=== PATIENT | female | born 1950 | race Caucasian/White ===

== ENCOUNTER → 2018-08-25 | Day surgery (SDC) | payer BC ==
[~2018-08-25] MED LIST: ALLEGRA ALLERGY60 MG PO; ASPIR 8181 MG PO; CARTIA XT240 MG PO; DAILY VITAMIN1 EAC4 PO; FENTANYL CITRATE/PF 100MCG/2 ML INJ ONE; GABAPENTIN100 MG PO; GLUCOSAMINE 1,1 EACH PO; JARDIANCE PO; LISINOPRIL10 MG PO; Lidocaine Patch TOP; METFORMIN HCL500 MG PO; MIDAZOLAM HCL 2 MG/2 ML VIAL ONE; NOVOLOG MI100 UNIT/1 SC; OR PHACO EYE KIT ONE; PRAVASTATIN SOD80 MG PO; PREOP PHACO EYE KIT ONE; ULTRAM50 MG PO; VESICARE5 MG PO; VICTOZA 2-0.6 MG/0.1 SC
--- OUTSIDE RECORDS SUMMARY | 2018-08-25 09:11 | XMS REPORT | Clinical Summary ---
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 Name Role Phone Edward Jacobsen MD PCP Allergies Not on File Medications Not on file Active Problems Not on file Encounters Care Team Description Date Type Specialty Kim Gil MD Non-toxic goiter (Primary Dx) 08/19/2018 Transcribe Access Orders Kim Gil MD Non-toxic goiter; Thyroid nodule 08/07/2018 Hospital Radiology Encounter Kim Gil MD Type II diabetes mellitus with hyperosmolarity, uncontrolled (HCC) (Primary Dx); Non-toxic goiter 07/30/2018 Transcribe Access Orders Kim Gil MD Type II diabetes mellitus with hyperosmolarity, uncontrolled (HCC); Non-toxic goiter 07/20/2018 Hospital Radiology Encounter Kim Gil MD Type II diabetes mellitus with hyperosmolarity, uncontrolled (HCC) (Primary Dx); Non-toxic goiter 07/09/2018 Transcribe Access Orders after 08/24/2017 Social History Date Tobacco Use Types Packs/Day Years Used Never Assessed Sex Assigned at Date Recorded Not on file Industry Job Start Date Occupation Not on file Not on file Not on file Travel End Travel History Travel Start No recent travel history available. Last Filed Vital Signs Not on file Plan of Treatment Health Maintenance Due Date Last Done Comments DIABETIC RETINAL EYE EXAM 1950 DIABETIC FOOT EXAM 01/06/1960 URINE MICROALBUMIN 01/06/1960 BREAST CANCER SCREENING 01/06/2000 COLON CANCER SCREENING 01/06/2000 SHINGRIX VACCINE (1 of 2) 01/06/2000 ZOSTER VACCINE 2010 INFLUENZA VACCINE 04/22/2018 06/23/2017, 06/14/2016, 07/07/2015, Additional history exists PNEUMOCOCCAL Completed 01/18/2014, 04/10/2009 POLYSACCHARIDE VACCINE AGE 65 AND OVER PNEUMOCOCCAL-13 Completed 07/07/2015 Procedures Comments Procedure Name Priority Date/Time Associated Diagnosis US FNA W IMAGING LEFT Routine 08/07/2018 Thyroid nodule 3:40 PM DISTRIBUTION AGENT US FNA W IMAGING RIGHT Routine 08/07/2018 Non-toxic goiter 3:40 PM DISTRIBUTION AGENT CYTOLOGY Routine 08/07/2018 (NON-GYNECOLOGICAL) 1:40 PM DISTRIBUTION AGENT REQUEST CYTOLOGY Routine 08/07/2018 (NON-GYNECOLOGICAL) 1:40 PM DISTRIBUTION AGENT REQUEST CYTOLOGY Routine 08/07/2018 (NON-GYNECOLOGICAL) 1:40 PM DISTRIBUTION AGENT REQUEST CYTOLOGY Routine 08/07/2018 (NON-GYNECOLOGICAL) 1:40 PM DISTRIBUTION AGENT REQUEST CYTOLOGY Routine 08/07/2018 (NON-GYNECOLOGICAL) 1:40 PM DISTRIBUTION AGENT REQUEST US THYROID Routine 07/20/2018 Type II diabetes mellitus 12:00 PM CDT with hyperosmolarity, uncontrolled (HCC) Non-toxic goiter after 08/24/2017 Results * US FNA W Imaging Right (08/07/2018 3:40 PM DISTRIBUTION AGENT) Narrative Performed At EXAMINATION:US FNA W IMAGING RIGHT, US FNA W IMAGING LEFT [facility] CLINICAL HISTORY:E04.9 Nontoxic goiterunspecified, E11.65E04.9 COMPARISON:None. TECHNIQUE: Initial ultrasound evaluation confirmed the presence of multiple thyroid nodules as seen on thyroid ultrasound dated July 20. The examination was discussed with the patient. Questions were answered. Risks, benefits, and alternatives were described. Written informed consent was obtained. Prior to beginning the procedure formal timeout procedure was performed. All elements of maximal sterile barrier technique were utilized. Real-time ultrasound imaging was performed. Permanent ultrasound images were obtained for the patient record. Initial ultrasound evaluation confirmed the presence of a 1.5 cm mixed solid and cystic nodule in the right superior gland with punctate echogenicities. A right 1.8 cm solid inferior pole nodule with punctate echogenic density is identified. A left-sided 1.2 cm solid isthmic nodule with punctate echogenicities identified. A left sided 2.1 cm mixed solid and cystic nodule with punctate echogenicities identified Utilizing real-time ultrasound guidance and local anesthesia, 3-4 FNA passes were made utilizing 25-gauge spinal needles into each of the nodules.The specimens were judged adequate by the Pathologist on inital review. The patient tolerated the procedure well. No immediate complications encountered. The patient left the department in good condition. Pathology results pending. IMPRESSION: Uncomplicated ultrasound-guided FNA biopsy of 4 individual thyroid nodules. 1.5 cm superior right thyroid nodule. 1.8 cm inferior right thyroid nodule. 1.2 cm left isthmic nodule. 2.1 cm left mid inferior/mid nodule Pathology results pending. [id number] Procedure Note Hm Interface, Radiology Results Incoming - 08/08/2018 2:52 PM DISTRIBUTION AGENT EXAMINATION: US FNA W IMAGING RIGHT, US FNA W IMAGING LEFT CLINICAL HISTORY: E04.9 Nontoxic goiter unspecified, E11.65 E04.9 COMPARISON: None. TECHNIQUE: Initial ultrasound evaluation confirmed the presence of multiple thyroid nodules as seen on thyroid ultrasound dated July 20. The examination was discussed with the patient. Questions were answered. Risks, benefits, and alternatives were described. Written informed consent was obtained. Prior to beginning the procedure formal timeout procedure was performed. All elements of maximal sterile barrier technique were utilized. Real-time ultrasound imaging was performed. Permanent ultrasound images were obtained for the patient record. Initial ultrasound evaluation confirmed the presence of a 1.5 cm mixed solid and cystic nodule in the right superior gland with punctate echogenicities. A right 1.8 cm solid inferior pole nodule with punctate echogenic density is identified. A left-sided 1.2 cm solid isthmic nodule with punctate echogenicities identified. A left sided 2.1 cm mixed solid and cystic nodule with punctate echogenicities identified Utilizing real-time ultrasound guidance and local anesthesia, 3-4 FNA passes were made utilizing 25-gauge spinal needles into each of the nodules.The specimens were judged adequate by the Pathologist on inital review. The patient tolerated the procedure well. No immediate complications encountered. The patient left the department in good condition. Pathology results pending. IMPRESSION: Uncomplicated ultrasound-guided FNA biopsy of 4 individual thyroid nodules. 1.5 cm superior right thyroid nodule. 1.8 cm inferior right thyroid nodule. 1.2 cm left isthmic nodule. 2.1 cm left mid inferior/mid nodule Pathology results pending. [id number] Performing Organization Address City/State/Zipcode Phone Number [facility] [address] [place] [address] * US FNA W Imaging Left (08/07/2018 3:40 PM DISTRIBUTION AGENT) Narrative Performed At EXAMINATION:US FNA W IMAGING RIGHT, US FNA W IMAGING LEFT [facility] CLINICAL HISTORY:E04.9 Nontoxic goiterunspecified, E11.65E04.9 COMPARISON:None. TECHNIQUE: Initial ultrasound evaluation confirmed the presence of multiple thyroid nodules as seen on thyroid ultrasound dated July 20. The examination was discussed with the patient. Questions were answered. Risks, benefits, and alternatives were described. Written informed consent was obtained. Prior to beginning the procedure formal timeout procedure was performed. All elements of maximal sterile barrier technique were utilized. Real-time ultrasound imaging was performed. Permanent ultrasound images were obtained for the patient record. Initial ultrasound evaluation confirmed the presence of a 1.5 cm mixed solid and cystic nodule in the right superior gland with punctate echogenicities. A right 1.8 cm solid inferior pole nodule with punctate echogenic density is identified. A left-sided 1.2 cm solid isthmic nodule with punctate echogenicities identified. A left sided 2.1 cm mixed solid and cystic nodule with punctate echogenicities identified Utilizing real-time ultrasound guidance and local anesthesia, 3-4 FNA passes were made utilizing 25-gauge spinal needles into each of the nodules.The specimens were judged adequate by the Pathologist on inital review. The patient tolerated the procedure well. No immediate complications encountered. The patient left the department in good condition. Pathology results pending. IMPRESSION: Uncomplicated ultrasound-guided FNA biopsy of 4 individual thyroid nodules. 1.5 cm superior right thyroid nodule. 1.8 cm inferior right thyroid nodule. 1.2 cm left isthmic nodule. 2.1 cm left mid inferior/mid nodule Pathology results pending. [id number] Procedure Note Interface, Radiology Results Incoming - 08/08/2018 2:52 PM DISTRIBUTION AGENT EXAMINATION: US FNA W IMAGING RIGHT, US FNA W IMAGING LEFT CLINICAL HISTORY: E04.9 Nontoxic goiter unspecified, E11.65 E04.9 COMPARISON: None. TECHNIQUE: Initial ultrasound evaluation confirmed the presence of multiple thyroid nodules as seen on thyroid ultrasound dated October 29 thousand 16. The examination was discussed with the patient. Questions were answered. Risks, benefits, and alternatives were described. Written informed consent was obtained. Prior to beginning the procedure formal timeout procedure was performed. All elements of maximal sterile barrier technique were utilized. Real-time ultrasound imaging was performed. Permanent ultrasound images were obtained for the patient record. Initial ultrasound evaluation confirmed the presence of a 1.5 cm mixed solid and cystic nodule in the right superior gland with punctate echogenicities. A right 1.8 cm solid inferior pole nodule with punctate echogenic density is identified. A left-sided 1.2 cm solid isthmic nodule with punctate echogenicities identified. A left sided 2.1 cm mixed solid and cystic nodule with punctate echogenicities identified Utilizing real-time ultrasound guidance and local anesthesia, 3-4 FNA passes were made utilizing 25-gauge spinal needles into each of the nodules.The specimens were judged adequate by the Pathologist on inital review. The patient tolerated the procedure well. No immediate complications encountered. The patient left the department in good condition. Pathology results pending. IMPRESSION: Uncomplicated ultrasound-guided FNA biopsy of 4 individual thyroid nodules. 1.5 cm superior right thyroid nodule. 1.8 cm inferior right thyroid nodule. 1.2 cm left isthmic nodule. 2.1 cm left mid inferior/mid nodule Pathology results pending. [id number] Performing Organization Address City/[facility]/Zipcode Phone Number [facility] [address] [place] [address] * Cytology (non-gynecological) request (08/07/2018 1:40 PM DISTRIBUTION AGENT) Only the most recent of 5 results within the time period is included. [facility] DEPARTMENT OF PATHOLOGY AND GENOMIC MEDICINE Cytology See link below for PDF Lab [facility] DEPARTMENT OF (non-gynecological) Report PATHOLOGY AND report GENOMIC MEDICINE Result status This is Supplemental Report [facility] DEPARTMENT OF [facility] [id number] PATHOLOGY AND GENOMIC MEDICINE Performing Organization Address [facility] Phone Number [facility] DEPARTMENT [address] [place] [address] PATHOLOGY AND GENOMIC MEDICINE * US Thyroid (07/20/2018 12:00 PM CDT) Narrative Performed At EXAMINATION:US THYROID [facility] CLINICAL HISTORY:E11.00 Type 2 diabetes mellitus with hyperosmolarity without nonketotic hyperglycemic-hyperosmolar coma ([facility]), E11.65 Type 2 diabetes mellitus with hyperglycemia, E11.65E04.9 COMPARISON:None. TECHNIQUE: Transverse and longitudinal sonographic images of the thyroid gland were obtained. Grayscale and color Doppler images were also obtained. FINDINGS: Right lobe thyroid 5.1 cm x 2.3 cm x 2.3 cm Nodule 1 superior gland: Spongiform nodule 1.26 cm TR x1.21 cm AP. Hypoechoic appearance. Mild lobularity. TI-RADS 4 Nodule 2 inferior gland: 1.1 cm TR by 0.8 cm AP spongiform hypoechoic nodule smoothly marginated with punctate echogenicities. TI-RADS 4 nodule 3 inferior gland: Isoechoic solid smoothly marginated nodule 1.3 cm TR x9.2 mm AP. TI-RADS 3 Cluster of 3 adjacent spongiform nodules all under 1 cm right mid thyroid gland measuring up to 1.4 cm in aggregate diameter Left lobe thyroid 5.0 cm x 1.7 cm x 2.4 cm Nodule 1 superior gland. 1.8 cm TR x1.4 cm AP spongiform isoechoic slightly lobulated nodule with punctate echogenicities. TI-RADS 4 Nodule 2: Superior gland 1.1 TR cm x 0.8 AP cm spongiform isoechoic identified lobulated nodule with punctate echogenicities TI-RADS 4 Isthmus 6 mm 8.1 mm by 8.9 mm rounded spongiform isoechoic nodule. TI-RADS 4 IMPRESSION: Multinodular goiter. Ultrasound FNA biopsy superior pole right thyroid nodule Ultrasound-guided FNA biopsy right 1.1 cm inferior gland TI-RADS 4 nodule Ultrasound-guided FNA biopsy TI-RADS 4 1.1 cm left superior lobe nodule Ultrasound-guided biopsy 8.9 mm TI-RADS 4 isthmic nodule Follow-up for additional multiple nodules Thank you for allowing us to participate in the care of your patient. [id number] Procedure Note Hm Interface, Radiology Results Incoming - 07/20/2018 4:29 PM CDT EXAMINATION: US THYROID CLINICAL HISTORY: E11.00 Type 2 diabetes mellitus with hyperosmolarity without nonketotic hyperglycemic-hyperosmolar coma ([facility]), E11.65 Type 2 diabetes mellitus with hyperglycemia, E11.65 E04.9 COMPARISON: None. TECHNIQUE: Transverse and longitudinal sonographic images of the thyroid gland were obtained. Grayscale and color Doppler images were also obtained. FINDINGS: Right lobe thyroid 5.1 cm x 2.3 cm x 2.3 cm Nodule 1 superior gland: Spongiform nodule 1.26 cm TR x1.21 cm AP. Hypoechoic appearance. Mild lobularity. TI-RADS 4 Nodule 2 inferior gland: 1.1 cm TR by 0.8 cm AP spongiform hypoechoic nodule smoothly marginated with punctate echogenicities. TI-RADS 4 nodule 3 inferior gland: Isoechoic solid smoothly marginated nodule 1.3 cm TR x9.2 mm AP. TI-RADS 3 Cluster of 3 adjacent spongiform nodules all under 1 cm right mid thyroid gland measuring up to 1.4 cm in aggregate diameter Left lobe thyroid 5.0 cm x 1.7 cm x 2.4 cm Nodule 1 superior gland. 1.8 cm TR x1.4 cm AP spongiform isoechoic slightly lobulated nodule with punctate echogenicities. TI-RADS 4 Nodule 2: Superior gland 1.1 TR cm x 0.8 AP cm spongiform isoechoic identified lobulated nodule with punctate echogenicities TI-RADS 4 Isthmus 6 mm 8.1 mm by 8.9 mm rounded spongiform isoechoic nodule. TI-RADS 4 IMPRESSION: Multinodular goiter. Ultrasound FNA biopsy superior pole right thyroid nodule Ultrasound-guided FNA biopsy right 1.1 cm inferior gland TI-RADS 4 nodule Ultrasound-guided FNA biopsy TI-RADS 4 1.1 cm left superior lobe nodule Ultrasound-guided biopsy 8.9 mm TI-RADS 4 isthmic nodule Follow-up for additional multiple nodules Thank you for allowing us to participate in the care of your patient. [id number] Performing Organization Address City/State/Zipcode Phone Number [facility] [address] [place] [address] after 08/24/2017 Insurance Payer Benefit Subscriber ID Type Phone Address Plan / Group BCBS BCBS OUT xxxxxxxxxxxx PPO OF STATE Advance Directives Patient has advance care planning documents on file. For more information, gayatri cxo contact: Dvo Barnes [address] [facility] [place] [address]
[2018-08-25 12:20] VITALS: BP 131/72
== END | disposition home or self-care (01) ==
LOC: OR 09:09
PROVIDERS: ATTEND Ophthalmology
DX: H25.12 Age-related nuclear cataract, left eye (principal); G47.33 Obstructive sleep apnea (adult) (pediatric); I10 Essential (primary) hypertension; E78.5 Hyperlipidemia, unspecified; E11.9 Type 2 diabetes mellitus without complications; K58.9 Irritable bowel syndrome, unspecified; M54.9 Dorsalgia, unspecified; R42 Dizziness and giddiness; Z88.6 Allergy status to analgesic agent; Z88.8 Allergy status to other drugs, medicaments and biological substances; Z91.048 Other nonmedicinal substance allergy status; Z79.82 Long term (current) use of aspirin; Z79.4 Long term (current) use of insulin
CPT/HCPCS: 36415; 66984; 82948; J2250; V2632

== ENCOUNTER → 2018-09-08 | Day surgery (SDC) | payer BC ==
--- OUTSIDE RECORDS SUMMARY | 2018-09-08 08:56 | XMS REPORT | Clinical Summary ---
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 Name Role Phone Edward Jacobsen MD PCP [...] Non-toxic goiter 07/09/2018 Transcribe Access Orders after 09/07/2017 Social History Date Tobacco Use Types Packs/Day [...] CANCER SCREENING 01/06/2000 COLON CANCER SCREENING 01/06/2000 SHINGLES VACCINES ( of 01/06/2000 2) INFLUENZA VACCINE 04/22/2018 06/23/2017, 06/14/2016, 07/07/2015, Additional history exists PNEUMOCOCCAL Completed 01/18/2014, 04/10/2009 POLYSACCHARIDE VACCINE AGE 65 AND OVER PNEUMOCOCCAL-13 Completed 07/07/2015 Procedures Comments Procedure Name Priority Date/Time Associated Diagnosis US FNA W IMAGING LEFT Routine 08/07/2018 Thyroid nodule 3:40 PM 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 US FNA W IMAGING RIGHT Routine 08/07/2018 Non-toxic goiter 3:40 PM 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 CYTOLOGY Routine 08/07/2018 (NON-GYNECOLOGICAL) 1:40 PM 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 REQUEST CYTOLOGY Routine 08/07/2018 (NON-GYNECOLOGICAL) 1:40 PM 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 REQUEST CYTOLOGY Routine 08/07/2018 (NON-GYNECOLOGICAL) 1:40 PM 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 REQUEST CYTOLOGY Routine 08/07/2018 (NON-GYNECOLOGICAL) 1:40 PM 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 REQUEST CYTOLOGY Routine 08/07/2018 (NON-GYNECOLOGICAL) 1:40 PM 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 REQUEST CYTOLOGY Routine 08/07/2018 (NON-GYNECOLOGICAL) 1:40 PM 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 REQUEST US THYROID Routine 07/20/2018 Type II diabetes mellitus 12:00 PM CDT with hyperosmolarity, uncontrolled (HCC) Non-toxic goiter after 09/07/2017 Results * US FNA W Imaging Right (08/07/2018 3:40 PM 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) Narrative Performed At EXAMINATION:US FNA W IMAGING [...] left mid inferior/mid nodule Pathology results pending. [id number] Procedure Note Hm Interface, Radiology Results Incoming - 08/08/2018 2:52 PM 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 EXAMINATION: US FNA W IMAGING RIGHT, US [...] left mid inferior/mid nodule Pathology results pending. [id number] Performing Organization Address City/State/Zipcode Phone Number [facility] [address] [place] [address] * US FNA W Imaging Left (08/07/2018 3:40 PM 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) Narrative Performed At EXAMINATION:US FNA W IMAGING [...] left mid inferior/mid nodule Pathology results pending. [id number] Procedure Note Interface, Radiology Results Incoming - 08/08/2018 2:52 PM 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 EXAMINATION: US FNA W IMAGING RIGHT, US [...] left mid inferior/mid nodule Pathology results pending. [id number] Performing Organization Address City/[facility] Phone Number [facility] [address] [place] [address] * Cytology (non-gynecological) request (08/07/2018 1:40 PM 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) Only the most recent of 6 results within the time period is included. [facility] DEPARTMENT OF PATHOLOGY AND GENOMIC MEDICINE Cytology See link below for PDF Lab [facility] DEPARTMENT OF (non-gynecological) Report PATHOLOGY AND report GENOMIC MEDICINE Result status This is Supplemental Report [facility] DEPARTMENT OF for [id number] PATHOLOGY AND GENOMIC MEDICINE Performing Organization Address City/[facility] Phone Number [facility] [place] [address] [place] [address] PATHOLOGY AND GENOMIC MEDICINE * US Thyroid (07/20/2018 12:00 PM CDT) Narrative Performed At EXAMINATION:US THYROID [facility] CLINICAL HISTORY:E11.00 Type 2 diabetes mellitus with [...] participate in the care of your patient. [id number] Procedure Note Hm Interface, Radiology Results Incoming [...] participate in the care of your patient. [id number] Performing Organization Address City/State/Zipcode Phone Number [facility] [address] [place] [address] after 09/07/2017 Insurance Payer Benefit Subscriber ID Type Phone Address Plan / Group BCBS BCBS OUT xxxxxxxxxxxx PPO OF STATE [address] (Home) [place] [address] Advance Directives Patient has advance care planning documents on file. For more information, gayatri cox contact: Dov Barnes [address] [place] [address]
[2018-09-08 11:45] VITALS: BP 120/70
== END | disposition home or self-care (01) ==
LOC: OR 08:53
PROVIDERS: ATTEND Ophthalmology
DX: H25.11 Age-related nuclear cataract, right eye (principal); I10 Essential (primary) hypertension; E78.5 Hyperlipidemia, unspecified; E11.9 Type 2 diabetes mellitus without complications; Z79.4 Long term (current) use of insulin; Z79.84 Long term (current) use of oral hypoglycemic drugs; K58.9 Irritable bowel syndrome, unspecified; G47.33 Obstructive sleep apnea (adult) (pediatric); Z79.82 Long term (current) use of aspirin; Z87.01 Personal history of pneumonia (recurrent)
CPT/HCPCS: 36415; 66984; 82948; J2250; V2632

== ENCOUNTER 2019-12-01 15:54 | Inpatient (IN) | payer BC ==
[~2019-12-01] VITALS: Ht 172.7 cm; Wt 122.1 kg
[~2019-12-01 15:54] MED LIST changes: -FENTANYL CITRATE/PF 100MCG/2 ML INJ ONE; -MIDAZOLAM HCL 2 MG/2 ML VIAL ONE; -OR PHACO EYE KIT ONE; -PREOP PHACO EYE KIT ONE
--- OUTSIDE RECORDS SUMMARY | 2019-12-01 15:56 | XMS REPORT ---
Author [facility] Address Unknown Phone Unavailable Care Team Providers Care Food Service Ambassador Name Role Phone Unavailable Unavailable Payers Payer Name Policy Type Policy Number Effective Date Expiration Date Problems This patient has no known problems. Allergies, Adverse Reactions, Alerts Allergy Name Allergy Type Status Severity Reaction(s) Onset Date Inactive Date Treating Clinician Comments codeine DA Active IN 2018-12-11 00:00:00 soap DA Active IN 2018-12-11 00:00:00 povidone-iodine DA Active IN 2018-12-11 00:00:00 Medications This patient has no known medications. Results Test Description Test Time Test Comments Text Results Atomic Results Result Comments SURGICAL SPECIMENS 2018-12-18 08:08:00 RUN DATE: 12/18/18 [facility] *LIVE* PAGE 1 RUN TIME: 807 Specimen Inquiry RUN USER: INTERFACE PATIENT: TATIANA SUAREZ LOC: HECTOR U #: [id number] AGE/SX: 68/F ROOM: [facility] RE12/14/18REG DR: Tee Reyes III : 50 BED: 1 DIS: 12/16/18 STATUS: DIS Rj TLOC: SPEC #: [id number] RECD: 12/14/18 STATUS: SOUMario REQ #: [id number] ELICIA: 12/14/[address]: Tee Reyes III, MD ENTERED: 12/16/18 SP TYPE: SURG SPEC OTHR DR: Edward Jacobsen DO ORDERED: GM LEVEL 4 CODES: [id number] - THYROID GLAND [id number] - TONSIL, NOS COPIES TO: Tee Reyes III, MD [address] [place] [address] [address] [place] [address] Edward Jacobsen DO [address] [place] [address] PROCEDURES: GM LEVEL 4 (Incomplete) TISSUES: 1. THYROID GLAND, NOS - Thyroid, right, excision 2. TONSIL, NOS - Tonsil, right 3. TONSIL, NOS - Tonsil, left FINAL DIAGNOSIS Thyroid, right, excision: Nodular hyperplasia (goiter). Tonsil, right.: Chronic tonsillitis. Tonsil, left.: Chronic tons illitis. GROSS AND MICROSCOPIC FROZEN DIAGNOSIS (): Thyroid, right, excision: Multinodular goiter with follicular lesion. GROSS DESCRIPTION: Received fresh designated right thyroid lobe is one segment of pink-zuniga tissue that weighs 12.5 g and measures 4 x 2.5 x 2 cm. The entire surface is inked black. Sections are submitted as (A) for frozen diagnosis. Additional sections are submitted entirely as (B)-(F). Received in formalin and labeled "Right tonsil" is a 4.3 cm tonsil. Received in formalin and labeled "Left tonsil" is a 3.8 cm tonsil. CONTINUED ON NEXT PAGE RUN DATE: 12/18/18 [facility] *LIVE* PAGE 2 RUN TIME: 807 Specimen Inquiry RUN USER: INTERFACE SPEC #: [id number] PATIENT: TATIANA SUAREZ #[id number] (Continued) GROSS AND MICROSCOPIC (Continued) Section code: (G) - Right tonsil; (H) - Left tonsil. MICROSCOPIC EXAMINATION: Sections of specimen #1 reveals nodular hyperplasia of thyroid follicles without significant nuclear atypia. Both of the tonsils are expanded by varying sized and shaped reactive lymphoid follicles. POST-OP DIAGNOSIS Thyroid nodule, goiter, tonsil hypertrophy PRE-OP DIAGNOSIS Thyroid nodule, goiter, tonsil hypertrophy REVIEWED BY: PK Signed SIGNATURE ON FILE Delfina Stone MD 12/18/18 0808 END OF REPORT GLUBED 2018-12-16 11:16:00 GLUBED (test code=GLUBED) 121 MG/DL 70-110 Performed by certified pocket grinder operator at [facility] [id number] 08:39:00* Test Item Value Reference Range Comments GLUBED (test code=GLUBED) 166 MG/DL 70-110 Performed by certified pocket grinder operator at [facility] [id number] 06:27:00* Test Item Value Reference Range Comments GLUBED (test code=GLUBED) 161 MG/DL 70-110 Performed by certified pocket grinder operator at [facility] [id number] 00:23:00* Test Item Value Reference Range Comments GLUBED (test code=GLUBED) 119 MG/DL 70-110 Performed by certified pocket grinder operator at [facility] [id number] 23:21:00* Test Item Value Reference Range Comments GLUBED (test code=GLUBED) 103 MG/DL 70-110 Performed by certified pocket grinder operator at [facility] [id number] 21:35:00* Test Item Value Reference Range Comments GLUBED (test code=GLUBED) 86 MG/DL 70-110 Performed by certified pocket grinder operator at [facility] [id number] 19:03:00* Test Item Value Reference Range Comments GLUBED (test code=GLUBED) 130 MG/DL 70-110 Performed by certified pocket grinder operator at [facility] [id number] 12:18:00* Test Item Value Reference Range Comments GLUBED (test code=GLUBED) 116 MG/DL 70-110 Performed by certified pocket grinder operator at [facility] [id number] 07:51:00* Test Item Value Reference Range Comments GLUBED (test code=GLUBED) 182 MG/DL 70-110 Performed by certified pocket grinder operator at [facility] [id number] 22:12:00* Test Item Value Reference Range Comments GLUBED (test code=GLUBED) 191 MG/DL 70-110 Performed by certified pocket grinder operator at [facility] [id number] 18:14:00* Test Item Value Reference Range Comments GLUBED (test code=GLUBED) 183 MG/DL 70-110 Performed by certified pocket grinder operator at [facility] [id number] 14:00:00* Test Item Value Reference Range Comments GLUBED (test code=GLUBED) 171 MG/DL 70-110 Performed by certified pocket grinder operator at [facility] [id number] 12:36:00* Test Item Value Reference Range Comments GLUBED (test code=GLUBED) 169 MG/DL 70-110 Performed by certified pocket grinder operator at [facility] [id number] 08:17:00* Test Item Value Reference Range Comments GLUBED (test code=GLUBED) 149 MG/DL 70-110 Performed by certified pocket grinder operator at [facility] COMPREHENSIVE METABOLIC [id number] 15:17:00* Test Item Value Reference Range Comments SODIUM (test code=NA) 138 mEq/L 134-147 POTASSIUM (test code=K) 4.1 mEq/L 3.4-5.0 CHLORIDE (test code=CL) 104 mEq/L 100-108 CARBON DIOXIDE (test code=CO2) 28 mEq/L 21-33 ANION GAP (test code=GAP) 10 0-20 GLUCOSE (test code=GLU) 103 mg/dL 70-110 BLOOD UREA NITROGEN (test code=BUN) 24 mg/dL 7-18 GLOMERULAR FILTRATION RATE (test code=GFR) 83.2 80-90 Units of measure=ml/min/1.73 m2 CREATININE (test code=CREAT) 0.7 mg/dL 0.6-1.3 TOTAL PROTEIN (test code=PROT) 8.4 g/dL 6.4-8.2 ALBUMIN (test code=ALB) 3.70 g/dL 3.4-5.0 CALCIUM (test code=CA) 10.5 mg/dL 8.0-10.5 BILIRUBIN TOTAL (test code=BILT) 0.30 mg/dL 0.0-1.0 SGOT/AST (test code=AST) 11 IUnit/L 15-37 SGPT/ALT (test code=ALT) 28 IUnit/L 15-65 ALKALINE PHOSPHATASE TOTAL (test code=ALKP) 60 IUnit/L 20-125 COMPREHENSIVE METABOLIC [id number] 15:14:00* Test Item Value Reference Range Comments SODIUM (test code=NA) 138 mEq/L 134-147 POTASSIUM (test code=K) 4.1 mEq/L 3.4-5.0 CHLORIDE (test code=CL) 104 mEq/L 100-108 CARBON DIOXIDE (test code=CO2) 28 mEq/L 21-33 ANION GAP (test code=GAP) 10 0-20 GLUCOSE (test code=GLU) 103 mg/dL 70-110 BLOOD UREA NITROGEN (test code=BUN) 24 mg/dL 7-18 GLOMERULAR FILTRATION RATE (test code=GFR) 83.2 80-90 Units of measure=ml/min/1.73 m2 CREATININE (test code=CREAT) 0.7 mg/dL 0.6-1.3 TOTAL PROTEIN (test code=PROT) g/dL 6.4-8.2 ALBUMIN (test code=ALB) 3.70 g/dL 3.4-5.0 CALCIUM (test code=CA) 10.5 mg/dL 8.0-10.5 BILIRUBIN TOTAL (test code=BILT) mg/dL 0.0-1.0 SGOT/AST (test code=AST) 11 IUnit/L 15-37 SGPT/ALT (test code=ALT) 28 IUnit/L 15-65 ALKALINE PHOSPHATASE TOTAL (test code=ALKP) IUnit/L 20-125 PROTHROMBIN [id number] 14:53:00* Test Item Value Reference Range Comments PROTHROMBIN TIME PATIENT (test code=PTP) 12.0 SECONDS 9.3-12.9 INTERNATIONAL NORMAL RATIO (test code=INR) 1.1 0.8-1.2 TARGET INR BY INDICATION Indication INR1. Prophylaxis of venous thrombosis 2.0 - 3.0 (orthopedic surgery), Prophylaxis of venous thrombosis (other than high-risk surgery), Treatment of Deep Vein Thrombosis/Pulmonary Embolism, Prevention of systemic embolism - Tissue heart valves, Acute Myocardial Infarction (to prevent systemic embolism), Valvular heart disease, Atrial Fibrillation, Bileaflet mechanical valve in aortic position.2. Mechanical prosthetic valves (high risk), 2.5 - 3.5 Presence of Lupus Anticoagulant or Antiphospholipid Antibodies, Prevention of systemic embolism - Acute Myocardial Infarction (to prevent recurrent infarct). THROMBOPLASTIN TIME [id number] 14:53:00* Test Item Value Reference Range Comments THROMBOPLASTIN TIME PARTIAL (test code=PTT) 34.7 Seconds 25.0-39.5 Therapeutic Range: 61.8-83.8 Sec Effective 10/20/2013 CBC W/AUTO [id number] 14:40:00* Test Item Value Reference Range Comments WHITE BLOOD CELL (test code=WBC) 11.27 x10 3/uL 4.5-11.0 RED BLOOD CELL (test code=RBC) 4.36 x10 6/uL 3.54-5.02 HEMOGLOBIN (test code=HGB) 12.5 g/dL 11.0-15.0 HEMATOCRIT (test code=HCT) 40.5 % 33.0-45.0 MEAN CELL VOLUME (test code=MCV) 92.9 fL 81.0-99.0 MEAN CELL HGB (test code=MCH) 28.7 pg 27.0-33.0 MEAN CELL HGB CONCETRATION (test code=MCHC) 30.9 g/dL 33.0-37.0 RED CELL DISTRIBUTION WIDTH CV (test code=RDW) 14.1 % 11.5-14.5 RED CELL DISTRIBUTION WIDTH SD (test code=RDW-SD) 47.9 fL 37.0-54.0 PLATELET COUNT (test code=PLT) 333 x10 3/uL 150-400 MEAN PLATELET VOLUME (test code=MPV) 10.3 fL 7.0-9.0 NEUTROPHIL % (test code=NT%) 56.9 % 56.0-77.0 IMMATURE GRANULOCYTE % (test code=IG%) 0.4 % 0.0-2.0 LYMPHOCYTE % (test code=LY%) 30.1 % 14.0-32.0 MONOCYTE % (test code=MO%) 9.0 % 4.8-9.0 EOSINOPHIL % (test code=EO%) 2.8 % 0.3-3.7 BASOPHIL % (test code=BA%) 0.8 % 0.0-2.0 NUCLEATED RBC % (test code=NRBC%) 0.0 % 0-0 NEUTROPHIL # (test code=NT#) 6.42 x10 3/uL 2.0-7.6 IMMATURE GRANULOCYTE # (test code=IG#) 0.05 x10 3/uL 0.00-0.03 LYMPHOCYTE # (test code=LY#) 3.39 x10 3/uL 1.0-3.8 MONOCYTE # (test code=MO#) 1.01 x10 3/uL 0.1-0.8 EOSINOPHIL # (test code=EO#) 0.31 x10 3/uL 0.0-0.2 BASOPHIL # (test code=BA#) 0.09 x10 3/uL 0.0-0.2 NUCLEATED RBC # (test code=NRBC#) 0.00 x10 3/uL 0.0-0.1 MANUAL DIFF REQUIRED (test code=MDIFF) NO - XR CHEST 2 [id number] 13:06:00 FAX: Tee Hall III [phone] [place]: St: PRE FAX: Edward Moreira DO [phone] Name: TATIANA SUAREZ [facility] [place] : 1950 Age/S: 68/F [address] [place] [address] Unit #: [id number] Loc: [place] [address] Phys: Tee Reyes III, MD Acct: [id number] Dis Date: Status: PRE [facility] [place] PHONE #: [phone] Exam Date: 12/11/2018 1300 FAX #: [phone] Reason: THYROID NODULE EXAMS: CPT CODE: [id number] XR CHEST 2 V 67948 PROCEDURE: CHEST TWO VIEW INDICATION: Thyroid nodule. COMPARISON: None. FINDINGS: Cardiovascular: Normal cardiac silhouette. Atherosclerotic calcifications. Mediastinum: No mediastinal or hilar lymphadenopathy. Lungs: No focal consolidation. No parenchymal mass. Pleura: No pleural effusion. No pneumothorax. Bones: No acute osseous abnormality. Degenerative changes of the thoracic spine. IMPRESSION: No acute radiographic abnormality. SL: [id number] at 1306 Reported and signed by: Daren Aguilar M.D. CC: Tee Reyes III, MD; Edward Jacobsen DO Technologist: RT Theodore(Mirta) Trnscrd Date/Time/By: 0 12/11/2018 (3290) : By: [email or web address] Orig Print D/T: S: 12/11/2018 (9241) PAGE 1 Signed Report
[2019-12-01] MEDS ORDERED: DILTIAZEM HCL 5 MG/ML 5 ML VIAL IV STA (16:57)
[2019-12-01] MEDS ORDERED: DIGOXIN INJ 0.25 MG/ML 2 ML AMP IV ONE (17:00)
[2019-12-01] MEDS ORDERED: DILTIAZEM HCL VIAL 5 ML ONE (17:02)
--- NOTE | 2019-12-01 17:12 | Diagnostic Imaging Report ---
EXAMINATION: CHEST SINGLE (PORTABLE) COMPARISON: None INDICATION: ^cp sob ^[id number] ^1630 DISCUSSION: Frontal view of the chest obtained at 1655 hours. HEART AND MEDIASTINUM: The heart is mildly enlarged. Pulmonary vasculature appears normal. LINES: None. LUNGS: Groundglass opacity base of the right lung may be due to superimposed soft tissue. Left lung is clear. No interstitial edema. PLEURA: No pleural effusion or pneumothorax. BONES AND SOFT TISSUES: No focal osseous lesion. The soft tissues are normal. IMPRESSION: Mild cardiomegaly. No vascular congestion or interstitial edema. Signed by: Dr. Karli Arzola MD on 12/01/2019 5:09 PM
[2019-12-01 17:54] LABS: BASOPHILS # (AUTO) 0.1 (0.0-0.1); BASOPHILS % 0.4 % (0.0-1.0); EOSINOPHILS # (AUTO) 0.3 (0.0-0.4); HEMATOCRIT 39.4 % (34.2-44.1); HEMOGLOBIN 12.5 g/dL (12.0-16.0); LYMPHOCYTES # (AUTO) 2.4 (1.0-3.2); LYMPHOCYTES % 15.3 % (18.0-39.1); MEAN CORPUSCULAR HEMOGLOBIN 27.3 pg (28-32); MEAN CORPUSCULAR HGB CONC 31.7 g/dL (31-35); MONOCYTES # (AUTO) 1.2 (0.2-0.8); MONOCYTES % 7.9 % (4.4-11.3); NEUTROPHILS # (AUTO) 11.6 (2.1-6.9); PLATELET COUNT 329 x10e3/uL (140-360); RED BLOOD COUNT 4.58 x10e6/uL (3.6-5.1); RED CELL DISTRIBUTION WIDTH 17.4 % (11.7-14.4)
[2019-12-01] MEDS ORDERED: METOPROLOL TARTRATE INJ 1 MG/ML VIAL IV ONE (18:15)
[2019-12-01 18:27] LABS: ALANINE AMINOTRANSFERASE 27 IU/L (0-55); ALBUMIN 3.8 g/dL (3.5-5.0); ALKALINE PHOSPHATASE 57 IU/L (40-150); ANION GAP 12.1 mmol/L (8-16); BLOOD UREA NITROGEN 14 mg/dL (7-26); BUN/CREATININE RATIO 16 (6-25); CALCIUM 10.1 mg/dL (8.4-10.2); CARBON DIOXIDE 27 mmol/L (22-29); CHLORIDE 106 mmol/L (98-107); CREATINE KINASE 32 IU/L (29-168); CREATININE, SERUM 0.89 mg/dL (0.57-1.11); EST GLOMERULAR FILTRATION RATE > 60 ML/MIN (60-); GLUCOSE 178 mg/dL (74-118); INR 1.48; MAGNESIUM 1.6 MG/DL (1.3-2.1); POTASSIUM 4.1 mmol/L (3.5-5.1); PROTHROMBIN TIME 18.9 seconds (11.9-14.5); SODIUM 141 mmol/L (136-145)
[2019-12-01 18:28] LABS: PARTIAL THROMBOPLASTIN TIME 39.2 seconds (23.8-35.5)
[2019-12-01 18:46] LABS: THYROID STIMULATING HORMONE 1.794 uIU/mL (0.350-4.940)
[2019-12-01] MEDS ORDERED: SODIUM CHLORIDE 0.9% 500ML 500 ML IV ONE (19:45)
[2019-12-01] MEDS ORDERED: ONDANSETRON HCL INJ 2MG/ML 2ML 2 MG/ML VIAL IV PRN (20:00)
[2019-12-01] MEDS ORDERED: AMIODARONE HCL 150MG 100 ML IV SCH (20:00)
[2019-12-01] MEDS ORDERED: NITROGLYCERIN 0.4 MG SUBL SL PRN (20:00)
[2019-12-01] MEDS: METOPROLOL TARTRATE 25 MG TAB PO SCH (20:15)
[2019-12-01] MEDS: ACETAMINOPHEN 325 MG TAB PO PRN (20:15)
[2019-12-01] MEDS: AMIODARONE HCL 360MG 200 ML IV SCH (20:15)
[2019-12-01] MEDS: ENOXAPARIN SODIUM INJ 100 MG/ML SYR SC SCH (20:15)
[2019-12-01 23:53] VITALS: BP 143/94
[2019-12-02] VITALS (28 sets, daily range): BP systolic 100–155; BP diastolic 57–138
[2019-12-02] MEDS: AMIODARONE HCL 360MG 200 ML IV SCH
[2019-12-02 01:39] LABS: CREATINE KINASE 36 IU/L (29-168)
[2019-12-02] MEDS: ACETAMINOPHEN 325 MG TAB PO PRN ×2 (02:04→19:40)
[2019-12-02] MEDS ORDERED: TRULICITY0.75 MG/0. (02:11)
[2019-12-02] MEDS ORDERED: LEVOTHYROXINE50 MCG PO (02:11)
[2019-12-02] MEDS ORDERED: AMIODARONE HCL 360MG 200 ML IV SCH (02:35)
[2019-12-02 05:10] LABS: BASOPHILS # (AUTO) 0.1 (0.0-0.1); BASOPHILS % 0.4 % (0.0-1.0); EOSINOPHILS # (AUTO) 0.3 (0.0-0.4); EOSINOPHILS % 2.1 % (0.0-6.0); HEMATOCRIT 36.2 % (34.2-44.1); HEMOGLOBIN 11.1 g/dL (12.0-16.0); LYMPHOCYTES # (AUTO) 2.4 (1.0-3.2); LYMPHOCYTES % 19.7 % (18.0-39.1); MEAN CORPUSCULAR HEMOGLOBIN 26.7 pg (28-32); MEAN CORPUSCULAR HGB CONC 30.7 g/dL (31-35); MONOCYTES # (AUTO) 1.4 (0.2-0.8); MONOCYTES % 11.1 % (4.4-11.3); NEUTROPHILS # (AUTO) 8.1 (2.1-6.9); NEUTROPHILS % 66.2 % (38.7-80.0); PLATELET COUNT 279 x10e3/uL (140-360); RED BLOOD COUNT 4.16 x10e6/uL (3.6-5.1); RED CELL DISTRIBUTION WIDTH 17.4 % (11.7-14.4)
[2019-12-02 05:42] LABS: ALANINE AMINOTRANSFERASE 19 IU/L (0-55); ALBUMIN 3.3 g/dL (3.5-5.0); ALKALINE PHOSPHATASE 54 IU/L (40-150); ANION GAP 10.6 mmol/L (8-16); BLOOD UREA NITROGEN 14 mg/dL (7-26); BUN/CREATININE RATIO 17 (6-25); CALCIUM 9.4 mg/dL (8.4-10.2); CARBON DIOXIDE 29 mmol/L (22-29); CHLORIDE 105 mmol/L (98-107); CHOLESTEROL 130 MD/DL (0-199); CREATININE, SERUM 0.81 mg/dL (0.57-1.11); EST GLOMERULAR FILTRATION RATE > 60 ML/MIN (60-); GLUCOSE 80 mg/dL (74-118); HDL CHOLESTEROL 26 MG/DL (40-60); LDL CHOLESTEROL 69 MG/DL (60-130); POTASSIUM 3.6 mmol/L (3.5-5.1); SODIUM 141 mmol/L (136-145); TRIGLYCERIDES 176 MG/DL (0-149)
[2019-12-02 06:08] LABS: CREATINE KINASE MB 0.8 ng/mL (0-5.0)
[2019-12-02] MEDS: ENOXAPARIN SODIUM INJ 100 MG/ML SYR SC SCH ×2 (08:11→21:02)
[2019-12-02] MEDS: METOPROLOL TARTRATE 25 MG TAB PO SCH ×2 (08:12→21:02)
[2019-12-02] MEDS: ASPIRIN 81 MG CHEW TAB PO SCH (10:43)
[2019-12-02] MEDS: MULTIVITAMINS/MINERALS TAB PO SCH (10:44)
[2019-12-02] MEDS: SOLIFENACIN SUCCINATE 5 MG TAB PO SCH (10:44)
[2019-12-02] MEDS: DILTIAZEM HCL ER 120 MG CAP PO SCH (10:44)
[2019-12-02] MEDS ORDERED: FUROSEMIDE INJ 10 MG/ML 2 ML VIAL IV ONE (10:45)
[2019-12-02] MEDS: NON-FORMULARY MEDICATION ([Jardiance] 25 MG) PO SCH (10:59)
--- NOTE | 2019-12-02 14:07 | Consultation ---
DATE OF CONSULTATION: Pulmonary Critical Care Consultation CHIEF COMPLAINT: Shortness of breath and palpitations. HISTORY OF PRESENT ILLNESS: The patient is a 69-year-old woman. She went to see her doctor because of some shortness of breath and chest discomfort. She was found to have atrial fibrillation and was sent to the ER. After arriving in the ER, she was found to be in rapid atrial fibrillation. She was started on amiodarone and converted to normal sinus rhythm. She feels better. She is not having chest pain. She still has some mild dyspnea. PAST SURGICAL HISTORY: 1. Cholecystectomy. 2. Hip surgery. 3. Hysterectomy. 4. Thyroid surgery. 5. Tonsillectomy. PAST MEDICAL HISTORY: 1. No prior history of heart disease. Apparently, she had a nuclear stress test and echo about a year ago that was normal. 2. No prior history of pulmonary disease. 3. No prior history of pulmonary emboli. SOCIAL HISTORY: The patient never smoked. She is not a drinker. ALLERGIES: THE PATIENT REPORTS SOME ALLERGY TO TOPICAL IODINE. FAMILY HISTORY: Family history is noncontributory. REVIEW OF SYSTEMS: The patient is afebrile. The patient has no headache. She is not having any neck pain. There is no chest discomfort now, although she did have some previously. She had dyspnea previously that has improved. She has no abdominal pain. She has no nausea or vomiting. She has no leg edema. PHYSICAL EXAMINATION: VITAL SIGNS: The patient is afebrile. The blood pressure is 131/85 and the saturation is 96%. Pulse is 71. HEENT: Shows no facial swelling or erythema. CARDIAC: Reveals regular rate and rhythm with normal S1 and S2. LUNGS: Auscultation of lungs reveals clear breath sounds bilaterally. There is no wheezing. ABDOMEN: Soft and nontender. There is no rebound or guarding. EXTREMITIES: Shows no leg edema or calf tenderness. There is no cyanosis or clubbing. SKIN: Shows no rashes. NEUROLOGICAL: Shows no focal abnormalities. LABORATORY DATA: White blood cell count is 12.2 and the hemoglobin is 11.1. The platelet count is 279. The BUN to creatinine ratio is normal. The other electrolytes within normal limits. RADIOGRAPHIC DATA: Chest x-ray shows no active disease. IMPRESSION: 1. New onset atrial fibrillation with rapid ventricular response. 2. History of prior hip surgery. 3. History of prior thyroid surgery. PLAN: 1. Complete amiodarone and switch to p.o. medications. 2. Complete Cardiology evaluation. 3. Check thyroid test as well as ventilation-perfusion scan. 4. The patient can be transferred out of the intensive care unit to the floor. MD JUDITH Hunter/DAFNE /[id number]
[2019-12-02] MEDS: METFORMIN HCL 500 MG TAB PO SCH (16:14)
[2019-12-02] MEDS: GABAPENTIN 100 MG CAP PO SCH (16:14)
[2019-12-02] MEDS ORDERED: INSULIN ASPART 70/30 100 UNITS/ML VIAL SC SCH (16:30)
[2019-12-02] MEDS ORDERED: NON-FORMULARY MEDICATION SQ SCH (17:00)
--- NOTE | 2019-12-02 18:10 | NUR ---
Echo completed. Per Dr. Mahendra Tyson continue all home medications. Dr. Ordonez restarted cardiac medications and gave orders to transition of amiodarone drip. Orders given for CTA chest PE protocol. MD informed that pt allergic to iodine and radiology does 6-12 hour prophylaxis but if wanting a shorter time than that for CTA of chest, MD will need to speak with radiologist, radiologist contact info given to MD. Dr. Lizy Rodriges ordered VQ scan, Dr. Ordonez informed and gave orders to cancel CTA chest. Pt tolerated VQ scan, no s/s of distress at this time. Will continue to monitor.
--- NOTE | 2019-12-02 18:53 | Diagnostic Imaging Report ---
Ventilation/perfusion lung scan Clinical Information: 69 F with SOB x 4 days and atrial flutter; recent hip surgery Comparison: Chest radiograph 12/01/2019 Discussion: Xenon-133 gas 25 mCi was administered via inhalation. Dynamic images of the lungs in the posterior projection were obtained through single breath, equilibrium, and washout phases. Distribution of tracer activity is irregular throughout the lungs. There are no segmental ventilatory defects. Washout of tracer is diffusely delayed with bibasilar air trapping. Perfusion images of the lungs were obtained in multiple projections following intravenous administration of approximately 6.6 mCi of Tc-99m MAA. Distribution of tracer is mildly irregular throughout the lungs. The contours of the lungs are well demarcated. There are no segmental perfusion defects of any size. The cardiomediastinal silhouette is borderline enlarged. Impression: 1. Scan findings represent a VERY LOW probability for acute pulmonary embolic disease based on the PIOPED II criteria. 2. Scan evidence of obstructive lung disease. Signed by: Dr. Janet Le M.D. on 12/02/2019 6:50 PM
[2019-12-02] MEDS ORDERED: SIMVASTATIN 80 MG TAB PO SCH (21:00)
[2019-12-03] VITALS (9 sets, daily range): BP systolic 94–140; BP diastolic 73–79
--- NOTE | 2019-12-03 00:35 | Consultation ---
DATE OF CONSULTATION: 12/02/2019 REQUESTING PETER: Anitha Tyson MD REASON FOR CONSULTATION: Atrial fibrillation. HISTORY OF PRESENT ILLNESS: This is a 69-year-old woman with history of hypertension, hyperlipidemia, diabetes mellitus, who presents with complaints of chest heaviness and shortness of breath. She is an established patient of Dr. Agrawal and had recent evaluation with a normal nuclear stress test in May 2019. Echocardiogram was performed at this time with normal LVEF 60%. The patient reports she had been doing well until yesterday, when she noted, she did not feel quite herself yesterday morning. She then began to have shortness of breath and chest pain, which she described as heaviness 10/10 in severity, lasting hours. The chest heaviness radiated to her jaw and was worse with lying down. She denies any nausea or diaphoresis. Due to the symptoms, she presented to her primary care Dr. Jacobsen. EKG was performed, which revealed atrial flutter with rapid ventricular response and she was sent to the ER for further evaluation. She denies any edema, orthopnea, or PND. Cardiology was consult for management. REVIEW OF SYSTEMS: Negative except as per HPI. PAST MEDICAL HISTORY: Hypertension, hyperlipidemia, and diabetes mellitus. PAST SURGICAL HISTORY: 1. Hip replacement. 2. Partial thyroidectomy. 3. Tonsillectomy. 4. Hysterectomy. 5. Cholecystectomy. ALLERGIES: PLEASE SEE EMR. MEDICATIONS: Please see medication list. SOCIAL: Denies tobacco, alcohol, or illicit drugs. FAMILY HISTORY: Pertinent for father with congestive heart failure. PHYSICAL EXAMINATION: VITAL SIGNS: Temperature 98.1 degrees, pulse 82, respiratory rate 16, blood pressure 133/84, and oxygen saturation 98% on room air. GENERAL: Morbidly obese woman, in no acute distress. Well developed, well nourished. HEENT: Normocephalic, atraumatic. Pupils equal. No scleral icterus. NECK: Supple. No thyromegaly or cervical lymphadenopathy. No carotid bruits. LUNGS: Clear to auscultation bilaterally. No wheezes or crackles. CARDIOVASCULAR: Normal rate. Irregular rhythm. No murmur. Normal S1, S2. ABDOMEN: Soft and nontender. EXTREMITIES: Trace edema. NEUROLOGIC: Nonfocal exam. LABORATORY DATA: WBC 12.24, hemoglobin 11.1, hematocrit 36.2, platelets 279. Sodium 141, potassium 3.6, chloride 105, CO2 29, BUN 14, and creatinine 0.81. Troponin 0.001. IMAGING DATA: Chest x-ray, mild cardiomegaly. No vascular congestion or interstitial edema. IMPRESSION: 1. Atrial flutter with rapid ventricular response. 2. Chest pressure. 3. Hypertension. 4. Hyperlipidemia. 5. Diabetes mellitus. RECOMMENDATIONS: The patient has ruled out for myocardial infarction with serial cardiac biomarkers. Given her recent stress test, no further ischemic evaluation is indicated at this time. Suspect her symptoms were secondary to poorly-controlled atrial flutter. Her heart rate is now controlled. Continue the patient on Lovenox. She will need to be started on DOAC upon discharge for CVA prophylaxis. This was discussed with the patient, who is agreeable. Continue diltiazem and metoprolol for now. Given recent hip surgery, evaluate for PE with CT of the chest. BNP was mildly elevated, start diuretics. It is negative for PE and heart rate is controlled. The patient may be discharged for EP referral as an outpatient for atrial flutter ablation. This was discussed with the patient, who was agreeable with the plan of care. Thank you for this consult. We will continue to follow. Carmella Ordonez MD ABS/DAFNE /[id number]
[2019-12-03] MEDS ORDERED: LEVOTHYROXINE SODIUM 50 MCG TAB PO SCH (06:00)
[2019-12-03] MEDS ORDERED: INSULIN ASPART 70/30 100 UNITS/ML VIAL SC SCH ×2 (07:30→11:30)
[2019-12-03] MEDS: ASPIRIN 81 MG CHEW TAB PO SCH (08:45)
[2019-12-03] MEDS: NON-FORMULARY MEDICATION ([Jardiance] 25 MG) PO SCH (08:45)
[2019-12-03] MEDS: METFORMIN HCL 500 MG TAB PO SCH (08:45)
[2019-12-03] MEDS: MULTIVITAMINS/MINERALS TAB PO SCH (08:51)
[2019-12-03] MEDS: SOLIFENACIN SUCCINATE 5 MG TAB PO SCH (08:51)
[2019-12-03] MEDS: ENOXAPARIN SODIUM INJ 100 MG/ML SYR SC SCH (08:51)
[2019-12-03] MEDS: GABAPENTIN 100 MG CAP PO SCH (08:51)
[2019-12-03] MEDS: DILTIAZEM HCL ER 120 MG CAP PO SCH (08:51)
--- NOTE | 2019-12-03 09:44 | NUR ---
Dr Mahendra Tyson and Mery to bedside; agree to discharge patient home today. Patient states understanding of changes in daily medications; need to f/u with PCP and Cardiology in a week. Plan is to schedule outpatient consultation with ticket collector or usher.
[2019-12-03] MEDS ORDERED: DILTIAZEM HCL ER 120 MG CAP PO ONE (10:45)
--- NOTE | 2019-12-03 12:56 | Progress Note ---
DATE: 12/03/2019 Cardiology Progress Note SUBJECTIVE: The patient denies chest pain or shortness of breath. OBJECTIVE: VITAL SIGNS: Temperature 98.4 degrees, pulse 101, respiratory rate 20, blood pressure 102/78, oxygen saturation 96% on room air. GENERAL: Obese woman, in no acute distress. Awake and alert. LUNGS: Clear to auscultation bilaterally. No wheezes or crackles. CARDIOVASCULAR: Normal rate, irregularly irregular. No murmur. Normal S1 and S2. ABDOMEN: Soft and nontender. EXTREMITIES: No edema. CARDIAC MEDICATIONS: 1. Enoxaparin 100 mg subcu q.12 hours. 2. Aspirin 81 mg p.o. daily. 3. Levothyroxine 50 mcg p.o. daily. 4. Simvastatin 80 mg p.o. at bedtime. 5. Diltiazem 240 mg p.o. daily. 6. Metoprolol tartrate 25 mg p.o. q.12 hours. LABORATORY DATA: None today. Telemetry was personally reviewed and interpreted, revealing atrial flutter, rate controlled. IMPRESSION: 1. Atrial flutter, rate controlled. 2. Chest pressure. 3. Hypertension. 4. Hyperlipidemia. 5. Diabetes mellitus. RECOMMENDATIONS: The patient ruled out for myocardial infarction with serial cardiac biomarkers. No further ischemic evaluation is indicated at this time given her recent normal nuclear stress test. Suspect her symptoms were secondary to poorly-controlled atrial flutter. Stop metoprolol. Increase diltiazem. Discussed anticoagulation with the patient including warfarin versus DOAC. She is agreeable to discharge on Xarelto as she was previously on this after her hip surgery. The patient ruled out for PE with V/Q scan. She may be discharged home to follow up in the office for EP referral and for atrial flutter ablation. Plan above was discussed with the patient who is agreeable with the plan of care. Thank you for this consult. We will continue to follow. Carmella Ordonez MD ABS/MODL /[id number]
[2019-12-04] MEDS ORDERED: DILTIAZEM HCL ER 120 MG CAP PO SCH (09:00)
== END 2019-12-03 11:00 | disposition home or self-care (01) | DRG 309 ==
LOC: ER 15:54 → ERHOLD 20:09 → ICU 23:46
DX: I48.0 Paroxysmal atrial fibrillation (principal); Z68.41 Body mass index [BMI] 40.0-44.9, adult; I48.92 Unspecified atrial flutter; R07.9 Chest pain, unspecified; F41.9 Anxiety disorder, unspecified; I10 Essential (primary) hypertension; E11.9 Type 2 diabetes mellitus without complications; E78.5 Hyperlipidemia, unspecified; E03.9 Hypothyroidism, unspecified; Z90.49 Acquired absence of other specified parts of digestive tract; Z82.49 Family history of ischemic heart disease and other diseases of the circulatory system; E66.9 Obesity, unspecified; Z91.041 Radiographic dye allergy status; Z88.5 Allergy status to narcotic agent; Z91.048 Other nonmedicinal substance allergy status; Z79.82 Long term (current) use of aspirin; Z79.4 Long term (current) use of insulin
CPT/HCPCS: 36415; 71045; 78582; 80053; 80061; 82550; 82553; 82948; 83735; 83880; 84443; 84484; 85025; 85610; 85730; 93005; 93306; 99284; A9540; A9558; J1160; J1650; J1815; J1940; J7040

== ENCOUNTER 2023-11-30 18:08 | Emergency (ER) | payer MEDICARE, BC ==
[~2023-11-30] VITALS: Ht 170.2 cm; Wt 102.5 kg
[~2023-11-30 18:08] MED LIST changes: +CALCITRIOL0.25 MCG PO; +COREG3.125 MG PO; +DILTIAZEM ER120 MG PO; +FLUCONAZOLE100 MG PO; +LEVOTHYROXINE50 MCG PO; +SYNTHROID50 MCG PO; +TRULICITY0.75 MG/0.; +ULTRAM 50MG50 MG PO
[2023-11-30] MEDS: ONDANSETRON HCL 4 MG ORAL DISINTEGRATING TAB PO ONE (19:38)
[2023-11-30 21:53] VITALS: BP 129/84; PULSE 74; RESP 18; TEMP 98.2; O2SAT 100
== END 2023-11-30 21:33 | disposition home or self-care (01) ==
LOC: ER 18:20
DX: S00.83XA Contusion of other part of head, initial encounter (principal); M54.2 Cervicalgia; W01.0XXA Fall on same level from slipping, tripping and stumbling without subsequent striking against object, initial encounter; Y93.01 Activity, walking, marching and hiking; Y92.89 Other specified places as the place of occurrence of the external cause; E11.9 Type 2 diabetes mellitus without complications; I48.91 Unspecified atrial fibrillation; E78.5 Hyperlipidemia, unspecified; E03.9 Hypothyroidism, unspecified; G47.33 Obstructive sleep apnea (adult) (pediatric); Z85.3 Personal history of malignant neoplasm of breast
CPT/HCPCS: 70450; 72125; 99283; Q0162

== ENCOUNTER → 2024-04-26 | Outpatient (REF) | payer MEDICARE, BC ==
[~2024-04-26] MED LIST changes: +ATORVASTATIN CA20 MG PO; +CIPROFLOXACIN500 MG PO; +DOXYCYCLINE HY100 MG PO; +HIPREX1 GM; +IOPAMIDOL 370 MG/ML 100 ML INFUS..BTL INJ ONE; +LIDOCAINE HCL 1% LOCAL INJ 20 ML VIAL ONE; +NEURONTIN100 MG PO; +OXYBUTYNIN CHLOR5 M1 PO; +PROTONIX20 MG PO; +SODIUM CHLORIDE 0.9% 500ML 500 ML ONE
== END ==
LOC: DX 09:04
PROVIDERS: ATTEND Urology
DX: T19.9XXD Foreign body in genitourinary tract, part unspecified, subsequent encounter (principal); N13.30 Unspecified hydronephrosis
CPT/HCPCS: 50435; C1729; C1769; J2001; J7040; Q9967

== ENCOUNTER 2024-07-29 12:07 | Emergency (ER) | payer MEDICARE, BC ==
[~2024-07-29] VITALS: Ht 172.7 cm; Wt 104.3 kg
[~2024-07-29 12:07] MED LIST changes: -IOPAMIDOL 370 MG/ML 100 ML INFUS..BTL INJ ONE; -LIDOCAINE HCL 1% LOCAL INJ 20 ML VIAL ONE; -SODIUM CHLORIDE 0.9% 500ML 500 ML ONE
[2024-07-29 13:10] VITALS: PULSE 70; RESP 18; TEMP 98.8; O2SAT 95
== END 2024-07-29 16:48 | disposition home or self-care (01) ==
LOC: ER 12:18
DX: R33.9 Retention of urine, unspecified (principal); E11.9 Type 2 diabetes mellitus without complications; I48.91 Unspecified atrial fibrillation; E78.5 Hyperlipidemia, unspecified; E03.9 Hypothyroidism, unspecified; G47.33 Obstructive sleep apnea (adult) (pediatric); Z85.3 Personal history of malignant neoplasm of breast; Z95.810 Presence of automatic (implantable) cardiac defibrillator
CPT/HCPCS: 99283